=== PATIENT | male | born 1960 | race Two or more races ===

== ENCOUNTER 2018-03-04 09:33 | Outpatient (CLI) | payer OTHER | END 2018-03-04 09:48 | disposition home or self-care (01) | LOC: SONOGRAMA 09:33 | DX: M25.512 Pain in left shoulder (principal); M75.122 Complete rotator cuff tear or rupture of left shoulder, not specified as traumatic ==

== ENCOUNTER → 2018-04-08 | Outpatient (CLI) | payer OTHER | END | disposition home or self-care (01) | LOC: RAD 08:27 | DX: R07.89 Other chest pain (principal) ==